=== PATIENT | male | born 1995 | race African-American/Black ===

== ENCOUNTER 2016-09-05 20:10 | Emergency (ER) | payer OTHER ==
[2016-09-05 20:24] VITALS: BP 148/83; PULSE 98; RESP 20; TEMP 99
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
== END 2016-09-05 21:56 | disposition home or self-care (01) ==
LOC: EC 20:10
DX: S61.215A Laceration without foreign body of left ring finger without damage to nail, initial encounter (principal); V89.0XXA Person injured in unspecified motor-vehicle accident, nontraffic, initial encounter; J45.909 Unspecified asthma, uncomplicated
CPT/HCPCS: 12001; 99283

== ENCOUNTER 2018-04-26 23:48 | Emergency (ER) | payer OTHER ==
[2018-04-27] MEDS ORDERED: IPRATROPIUM-ALBUTEROL 3 ML NEB INHALATION STA ×2 (00:05→00:49)
[2018-04-27] MEDS ORDERED: DEXAMETHASONE SOD PHOSPHATE 10 MG/ML 1 ML VIAL PO STA (00:05)
--- NOTE | 2018-04-27 00:47 | XR ---
EXAMINATION TYPE: XR chest 2V DATE OF EXAM: 04/27/2018 COMPARISON: NONE HISTORY: Cough TECHNIQUE: Frontal and lateral views of the chest are obtained. FINDINGS: Heart and mediastinum are normal. Lungs are clear. Diaphragm is normal. Bony thorax appear s normal. IMPRESSION: Normal chest
--- NOTE | 2018-04-27 00:51 | ED ---
General Adult HPI <Ronald Hager - Last Filed: 04/27/18 01:40> - General Source: patient, RN notes reviewed Mode of arrival: ambulatory Limitations: no limitations <Konrad Barrera - Last Filed: 04/27/18 05:42> - General Chief complaint: Shortness of Breath Stated complaint: SOB Time Seen by Provider: 04/27/18 00:22 - History of Present Illness Initial comments: 23-year-old male presents to the emergency determine for a chief complaint of shortness of breath x1 day. Patient states he developed a cough yesterday and has been wheezing. He states he is out of his albuterol for his nebulizer. He states he does not have an inhaler at home. Patient states this happens to him about once a year and he does nebulizers until he is better. Patient states he has felt like he had a fever but has not checked it at home. Patient has no other complaints at this time including shortness of breath, chest pain, abdominal pain, nausea or vomiting, headache, or visual changes. (Konrad Barrera) - Related Data Previous Rx's Medication Instructions Recorded Albuterol Inhaler [Ventolin Hfa 1 - 2 puff INHALATION RT-Q6H PRN 04/27/18 Inhaler] #1 inhaler Dexamethasone [Decadron] 10 mg PO ONCE #2 tablet 04/27/18 Allergies Allergy/AdvReac Type Severity Reaction Status Date / Time No Known Allergies Allergy Verified 04/26/18 23:58 Review of Systems ROS Other: All systems not noted in ROS Statement are negative. <Ronald Hager - Last Filed: 04/27/18 01:40> ROS Other: All systems not noted in ROS Statement are negative. <Konrad Barrera - Last Filed: 04/27/18 05:42> ROS Statement: Those systems with pertinent positive or pertinent negative responses have been documented in the HPI. Past Medical History Past Medical History: Asthma History of Any Multi-Drug Resistant Organisms: None Reported Past Surgical History: No Surgical Hx Reported Past Psychological History: No Psychological Hx Reported Smoking Status: Never smoker Past Alcohol Use History: Occasional Past Drug Use History: None Reported <Konrad Barrera - Last Filed: 04/27/18 05:42> General Exam Limitations: no limitations General appearance: alert, in no apparent distress Head exam: Present: atraumatic, normocephalic, normal inspection Eye exam: Present: normal appearance. Absent: scleral icterus, conjunctival injection ENT exam: Present: normal exam, mucous membranes moist Neck exam: Present: normal inspection, full ROM. Absent: tenderness, meningismus, lymphadenopathy Respiratory exam: Present: wheezes (wheezing noted in all lung morrow). Absent : respiratory distress, rales, rhonchi, stridor Cardiovascular Exam: Present: regular rate, normal rhythm, normal heart sounds. Absent: systolic murmur, diastolic murmur, rubs, gallop, clicks <Konrad Barrera P - Last Filed: 04/27/18 05:42> Vital Signs 04/26/18 04/27/18 04/27/18 23:56 00:05 00:06 Temperature 98.8 F Pulse Rate 107 H 108 H Respiratory 26 H 24 Rate Blood Pressure 126/67 O2 Sat by Pulse 94 L Oximetry 04/27/18 04/27/18 04/27/18 00:15 01:07 01:21 Temperature Pulse Rate 112 H 94 116 H Respiratory 18 Rate Blood Pressure 126/64 O2 Sat by Pulse 93 L Oximetry 04/27/18 04/27/18 01:34 02:04 Temperature 97.6 F Pulse Rate 116 H Respiratory Rate Blood Pressure O2 Sat by Pulse Oximetry Medical Decision Making <Ronald Hager - Last Filed: 04/27/18 01:40> - Radiology Data Radiology results: report reviewed, image reviewed <Konrad Barrera P - Last Filed: 04/27/18 05:42> - Medical Decision Making 23-year-old male presents for chief complete of asthma. Patient has had a cough for the past day as well as shortness of breath. Noted in all 4 quadrants. Patient was given Decadron and multiple breathing treatments here in the emergency department. He is feeling much better at this time. He is alert and interactive. Clinically patient appears to have improved shortness of breath and wheezing has decreased substantially. Patient will use his nebulizer at home as well as an inhaler. Patient agrees he is ready to go home. He is aware to return immediately to the emergency department if he has any worsening symptoms or worsening shortness of breath. Dr. Hager also saw the patient and filled out discharge criteria. (Konrad Barrera) Disposition Is patient prescribed a controlled substance at d/c from ED?: No Time of Disposition: 01:42 <Ronald Hager - Last Filed: 04/27/18 01:40> Is patient prescribed a controlled substance at d/c from ED?: No <Konrad Barrera - Last Filed: 04/27/18 05:42> Clinical Impression: Asthma attack Disposition: HOME SELF-CARE Condition: Good Prescriptions: Albuterol Inhaler [Ventolin Hfa Inhaler] 1 - 2 puff INHALATION RT-Q6H PRN #1 inhaler PRN Reason: Shortness Of Breath Dexamethasone [Decadron] 10 mg PO ONCE #2 tablet Referrals: None,Stated [Primary Care Provider] - 1-2 days
[2018-04-27 01:08] VITALS: BP 126/64; RESP 18
[2018-04-27 01:22] VITALS: PULSE 116
[2018-04-27 02:05] VITALS: TEMP 97.6
== END 2018-04-27 02:07 | disposition home or self-care (01) ==
LOC: EC 23:48
DX: J45.909 Unspecified asthma, uncomplicated (principal)
CPT/HCPCS: 94640 ×2; 71046; 99285; J1100